=== PATIENT | female | born 1970 | race African-American/Black ===

== ENCOUNTER 2018-01-12 13:46 | Outpatient (REF) | payer MEDICARE, MEDICAID ==
[~2018-01-12 13:46] MED LIST: ACCUPRIL5 MG; ADLT ASA LOW81 MG PO; ADVAIR DISK1 INH; ALLEGRA-D 1212 HOUR PO; AMOXICILLIN500 MG PO; ASPIRIN LOW DOS81 MG PO; ASPIRIN325 MG PO; ASPIRIN81 MG PO; AVELOX400 MG OR; AVELOX400 MG PO; BIAXIN500 M1 PO; CIPROFLOXACIN500 M1 PO; CIPROFLOXACN250 MG PO; CODEINE/APAP1 TAB OR; CORRECTOL100 MG PO; FAMOTIDINE40 M1 PO; FERROUS SULF325 M1 PO; FLAGYL ER750 MG PO; FLONASE NASAL50 MCG; FLUTICASONE50 MCG; GABAPENTIN300 MG PO; GLUCOTROL XL2.5 MG PO; HUMALOG100 MG/ML SC; IBUPROFEN800 MG PO; KLOR-CON 1010 MEQ PO; LASIX 40 MG TAB40 MG PO; LASIX 80 MG TAB80 MG PO; LASIX40 MG OR; LASIX80 MG OR; LEVAQUIN750 MG PO; LEXAPRO10 MG PO; LISINOPRIL5 MG PO; LOPRESSOR25 MG PO; LOPRESSOR50 MG PO; LORTAB 5 OR; LORTAB 7.57.5 MG PO; METO50TA52 PO; METOPROL TAR25 MG PO; METRONIDAZOL500 MG PO; MOTRIN200 MG PO; NAPROSYN500 MG PO; NORETHINDRONE0.35 MG PO; NU-IRON 150150 MG OR; NYSTATIN100000 M4 TOP; OMEPRAZOLE20 MG PO; ONDANSETRON4 MG PO; OXYCODONE HCL5 MG PO; OXYCODONE10 MG PO; PANTOPRAZOLE SO40 MG PO; PLAVIX75 MG PO; POLYETHYLENE GL1 POW PO; PRILOSEC20 MG PO; PRILOSEC40 MG PO; PROAIR HFA IN; RESTORIL15 MG PO; SUCRALFATE1 GM PO; SUCRALFATE1 GM/10 ML PO; TYLENOL # 31 TA1 PO; TYLENOL # 31 TAB OR; VITAMIN C500 M6 PO; XANAX0.25 MG PO; ZOLPIDEM5 MG PO; ZPAK PO; ZYRTEC-D AL1 PO
== END 2018-01-12 14:59 | disposition home or self-care (01) ==
LOC: INF 13:46
PROVIDERS: ATTEND Family Medicine
PROC: 3C1ZX8Z Irrigation of Indwelling Device using Irrigating Substance, External Approach (ICD-10-PCS; principal; 2018-01-12)
DX: Z45.2 Encounter for adjustment and management of vascular access device (principal)